=== PATIENT | male | born 1985 | race African-American/Black ===

== ENCOUNTER 2017-04-06 21:40 | Emergency (ER) | payer MEDICAID ==
[~2017-04-06] VITALS: Ht 172.7 cm; Wt 73.0 kg
[2017-04-06] MEDS ORDERED: IBUPROFEN 600MG TABLET PO ONE (23:00)
[2017-04-06 23:04] VITALS: BP 113/49
== END 2017-04-07 00:20 | disposition home or self-care (01) ==
LOC: ER 21:40
DX: M54.32 Sciatica, left side (principal); F12.10 Cannabis abuse, uncomplicated
CPT/HCPCS: 99282